=== PATIENT | female | born 1945 | race Caucasian/White ===

== ENCOUNTER → 2017-05-22 | Outpatient (CLI) | payer MEDICARE ==
[~2017-05-22] MED LIST: ALTASE; ASP325T PO; CRESTOR40 MG PO; CYCL10TA9 PO; EZET10TA5 PO; LABE100T2 PO; META800T5 PO; NAPR550T PO; NIA500ERT PO; RMP5C PO; TRM50T PO
--- NOTE | 2017-05-22 17:38 | Diagnostic Imaging Report ---
PROCEDURE: US Carotid Duplex Bilateral. TECHNIQUE: Multiple real-time grayscale images were obtained over the carotid arteries in various projections bilaterally. Additional duplex Doppler and color Doppler images were also obtained. INDICATION: Carotid occlusive disease. COMPARISON: There are no previous studies available for comparison. FINDINGS: There is heavy hard and soft plaque formation involving both carotid bifurcations. The flow velocities do suggest that there is a 60-79% stenosis of the origin of the internal carotid artery on the left. There is no hemodynamically significant stenosis of the right carotid system. Both vertebral arteries were identified, and there was antegrade flow bilaterally. IMPRESSION: 1. There is atherosclerotic disease involving both carotid bifurcations, and there does appear to be 60-79% stenosis of the origin of the internal carotid artery on the left. If further imaging is desired, then CTA of the neck would be recommended. 2. There is no sign of a hemodynamically significant stenosis of the right carotid system. Dictated by: Dictated on workstation # [id number]
== END ==
LOC: RAD 08:57
PROVIDERS: ATTEND Nurse Practitioner
DX: Z12.31 Encounter for screening mammogram for malignant neoplasm of breast (principal); I65.23 Occlusion and stenosis of bilateral carotid arteries
CPT/HCPCS: 77067; 93880

== ENCOUNTER 2018-04-12 15:51 | Emergency (ER) | payer MEDICARE ==
[~2018-04-12] VITALS: Ht 172.7 cm; Wt 81.6 kg
[2018-04-12] MEDS ORDERED: TICA60TA (17:27)
[2018-04-12 17:56] LABS: BASOPHILS % (AUTO) 0 % (0-10); EOSINOPHILS # (AUTO) 0.2 10^3/uL (0.0-0.3); EOSINOPHILS % (AUTO) 4 % (0-10); HEMATOCRIT 43 % (35-52); HEMOGLOBIN 14.2 G/DL (11.5-16.0); LYMPHOCYTES # (AUTO) 1.3 X 10^3 (1.0-4.0); LYMPHOCYTES % (AUTO) 29 % (12-44); MEAN CORPUSCULAR HEMOGLOBIN 32 PG (25-34); MEAN CORPUSCULAR HGB CONC 33 G/DL (32-36); MEAN CORPUSCULAR VOLUME 99 FL (80-99); MEAN PLATELET VOLUME 9.7 FL (7.4-10.4); MONOCYTES # (AUTO) 0.5 X 10^3 (0.0-1.0); MONOCYTES % (AUTO) 12 % (0-12); NEUTROPHILS # (AUTO) 2.4 X 10^3 (1.8-7.8); NEUTROPHILS % (AUTO) 55 % (42-75); PLATELET COUNT 184 10^3/uL (130-400); RED BLOOD COUNT 4.39 10^6/uL (4.35-5.85); RED CELL DISTRIBUTION WIDTH 13.1 % (10.0-14.5); WHITE BLOOD COUNT 4.4 10^3/uL (4.3-11.0)
[2018-04-12 18:13] LABS: ALBUMIN 4.4 GM/DL (3.2-4.5); BILIRUBIN,TOTAL 0.7 MG/DL (0.1-1.0); CALCIUM 10.5 MG/DL (8.5-10.1); CREATININE SERUM 0.98 MG/DL (0.60-1.30); POTASSIUM 4.6 MMOL/L (3.6-5.0)
[2018-04-12 18:28] LABS: BILIRUBIN,URINE NEGATIVE (NEGATIVE); CLARITY,URINE CLEAR; COLOR,URINE YELLOW; GLUCOSE, URINE (UA) NEGATIVE (NEGATIVE); KETONES,URINE NEGATIVE (NEGATIVE); LEUKOCYTE ESTERASE ,URINE NEGATIVE (NEGATIVE); NITRITE,URINE NEGATIVE (NEGATIVE); PH,URINE 7 (5-9); PROTEIN,URINE NEGATIVE (NEGATIVE); UROBILINOGEN,URINE NORMAL (NORMAL)
[2018-04-12 18:33] LABS: PROTHROMBIN TIME PATIENT 13.2 SEC (12.2-14.7)
--- NOTE | 2018-04-12 18:37 | ED GI ---
General Chief Complaint: Rect Problems Stated Complaint: BLEEDING VAGINALLY Nursing Triage Note: AMB TO ROOM WITH PATIENT C/O RECTAL BLEEDING AND HAS BEEN HAVING SOME LOW BACK PAIN. SAW HER DR THIS WEEK FOR THE PAIN WAS TOLD TO TAKE TYLENOL FOR . Sepsis Screen: No Definite Risk Source of Information: Patient Exam Limitations: No Limitations History of Present Illness Date Seen by Provider: Apr 12, 2018 Time Seen by Provider: 18:00 Initial Comments PT ARRIVES VIA POV STATES SHE WAS AT THE LIBRARY, AND AROUND 1600, SHE WENT TO THE BATHROOM AND HAD MODERATE AMOUNT OF BRIGHT RED RECTAL BLEEDING WITH A FEW SMALL CLOTS. NO STOOL. BLEEDING HAS ESSENTIALLY STOPPED NOW. NO BLOOD IN PANTI LINER/PAD, ONLY HAS A SCANT AMOUNT OF BLOOD ON TISSUE WITH WIPING NO RECTAL PAIN NO CONSTIPATION OR DIARRHEA--HAD NORMAL BM THIS AM NO PROBLEMS URINATING NO DIZZINESS NO FEVER NO NAUSEA/VOMITING--APPETITE HAS BEEN NORMAL AND HAS EATEN NORMALLY TODAY HAS BEEN HAVING LOWER BACK PAIN , OCCASIONALLY MORE IN RIGHT FLANK AND RADIATING AROUND TO RIGHT MID AND LOWER ABDOMEN, FOR SEVERAL WEEKS HAS BEEN SEEN AT DR. CHAO'S OFFICE A COUPLE OF TIMES FOR THIS, AND WAS INITIALLY DX WITH UTI AND STARTED ON UNKNOWN ANTIBIOTIC , STATES CULTURES WERE NEGATIVE. SAW DR. CHAO ON Saturday04/10/18 FOR FOLLOW UP AND URINE WAS CLEAR. NO ADDITIONAL TESTS HAVE BEEN DONE, WAS TOLD IT WAS POSSIBLY A PINCHED NERVE. NO ADDITIONAL RX'S PT DENIES HISTORY OF SIMILAR PT HAS HAD A RECTAL POLYP REMOVED MANY YEARS AGO PT IS ON BRILINTA + ASPIRIN FOR CAD/ASVD. PCP: DR. CHAO Allergies and Home Medications Allergies Coded Allergies: No Known Drug Allergies (Unverified , 02/23/10) Home Medications Aspirin 325 Mg Tab, 325 MG PO DAILY, (Reported) Cyclobenzaprine Hcl 10 Mg Tablet, 1 EACH PO Q8HR PRN FOR MUSCLE SPASMS Prescribed by: ENRRIQUE SMITH on 08/09/13 0131 Ezetimibe 10 Mg Tablet, 1 TAB PO DAILY, (Reported) Hydrocortisone/Pramoxine 30 Gm Cream.appl, 30 GM RC QID Prescribed by: ENRRIQUE SMITH on 04/12/181927 Labetalol Hcl 100 Mg Tablet, 1 TAB PO BID, (Reported) Niacin 500 Mg Tablet.sa, 2 TAB PO DAILY, (Reported) Ramipril 5 Mg Capsule, 2 TAB PO DAILY, (Reported) Rosuvastatin Calcium 40 Mg Tablet, 1 TAB PO DAILY, (Reported) Tramadol Hcl 50 Mg Tab, 50 MG PO Q4-6HOURS PRN for P FOR PAIN Prescribed by: ENRRIQUE SMITH on 08/09/13 0131 Patient Home Medication List Home Medication List Reviewed: Yes Review of Systems Constitutional: no symptoms reported; No diaphoresis, No dizziness, No fever, No malaise Respiratory: No Symptoms Reported Cardiovascular: No Symptoms Reported Gastrointestinal: See HPI, Abdominal Pain; Denies Constipated, Denies Diarrhea , Denies Nausea, Denies Poor Appetite; Rectal Bleeding; Denies Vomiting Genitourinary: No Symptoms Reported Musculoskeletal: see HPI, back pain Skin: no symptoms reported Psychiatric/Neurological: No Symptoms Reported Endocrine: No Symptoms Reported Hematologic/Lymphatic: See HPI Past Voamvhl-Tiwqxi-Ntjcmu Hx Patient Social History Alcohol Use: Denies Use Recreational Drug Use: No Smoking Status: Never a Smoker Recent Foreign Travel: No Contact w/Someone Who Travel: No Recent Infectious Disease Expo: No Immunizations Up To Date Tetanus Booster (TDap): Unknown Date of Influenza Vaccine: Jul 07, 2013 Past Medical History Surgeries: Yes (COLONOSCOPIES/RECTAL POLYPECTOMY. LEFT RENAL ARTERY STENT. 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 oz. 81.685162au; BMI Method:Stated General Appearance: WD/WN, no apparent distress HEENT: PERRL/EOMI; No pale conjunctivae (R), No pale conjunctivae (L) Neck: normal inspection Respiratory: normal breath sounds, no respiratory distress, no accessory muscle use Cardiovascular: normal peripheral pulses, regular rate, rhythm, no edema, no JVD, no murmur Gastrointestinal: normal bowel sounds, non tender, soft, no organomegaly, no pulsatile mass Rectal: hemorrhoids (BLEEDING RECTAL HEMORRHOID, WITH SMALL CLOT AT SITE--NO ACTIVE BLEEDING AT THIS TIME. NON--TENDER) Extremities: normal inspection, no pedal edema, no calf tenderness, normal capillary refill Back: normal inspection, no CVA tenderness Neurologic/Psychiatric: survey superintendent II-XII nml as tested, no motor/sensory deficits, alert, normal mood/affect, oriented x 3 Skin: normal color, warm/dry; No ecchymosis, No rash Progress/Results/Core Measures Results/Orders Lab Results Laboratory Tests Test 04/12/18 17:45 04/12/18 18:23 Range/Units White Blood Count 4.4 4.3-11.0 10^3/uL Red Blood Count 4.39 4.35-5.85 10^6/uL Hemoglobin 14.2 11.5-16.0 G/DL Hematocrit 43 35-52 % Mean Corpuscular Volume 99 80-99 FL Mean Corpuscular Hemoglobin 32 25-34 PG Mean Corpuscular Hemoglobin Concent 33 32-36 G/DL Red Cell Distribution Width 13.1 10.0-14.5 % Platelet Count 184 130-400 10^3/uL Mean Platelet Volume 9.7 7.4-10.4 FL Neutrophils (%) (Auto) 55 42-75 % Lymphocytes (%) (Auto) 29 12-44 % Monocytes (%) (Auto) 12 0-12 % Eosinophils (%) (Auto) 4 0-10 % Basophils (%) (Auto) 0 0-10 % Neutrophils # (Auto) 2.4 1.8-7.8 X 10^3 Lymphocytes # (Auto) 1.3 1.0-4.0 X 10^3 Monocytes # (Auto) 0.5 0.0-1.0 X 10^3 Eosinophils # (Auto) 0.2 0.0-0.3 10^3/uL Basophils # (Auto) 0.0 0.0-0.1 10^3/uL Prothrombin Time 13.2 12.2-14.7 SEC INR Comment 1.0 0.8-1.4 Activated Partial Thromboplast Time 31 24-35 SEC Sodium Level 140 135-145 MMOL/L Potassium Level 4.6 3.6-5.0 MMOL/L Chloride Level 108 H 98-107 MMOL/L Carbon Dioxide Level 26 21-32 MMOL/L Anion Gap 6 5-14 MMOL/L Blood Urea Nitrogen 24 H 7-18 MG/DL Creatinine 0.98 0.60-1.30 MG/DL Estimat Glomerular Filtration Rate 55 BUN/Creatinine Ratio 24 Glucose Level 91 70-105 MG/DL Calcium Level 10.5 H 8.5-10.1 MG/DL Magnesium Level 2.2 1.8-2.4 MG/DL Total Bilirubin 0.7 0.1-1.0 MG/DL Aspartate Amino Transf (AST/SGOT) 22 5-34 U/L Alanine Aminotransferase (ALT/SGPT) 19 0-55 U/L Alkaline Phosphatase 44 40-136 U/L Total Protein 7.0 6.4-8.2 GM/DL Albumin 4.4 3.2-4.5 GM/DL Urine Color YELLOW Urine Clarity CLEAR Urine pH 7 5-9 Urine Specific [place] 1.005 L 1.016-1.022 Urine Protein NEGATIVE NEGATIVE Urine Glucose (UA) NEGATIVE NEGATIVE Urine Ketones NEGATIVE NEGATIVE Urine Nitrite NEGATIVE NEGATIVE Urine Bilirubin NEGATIVE NEGATIVE Urine Urobilinogen NORMAL NORMAL MG/DL Urine Leukocyte Esterase NEGATIVE NEGATIVE Urine RBC (Auto) NEGATIVE NEGATIVE Urine RBC RARE /HPF Urine WBC 0-2 /HPF Urine Squamous Epithelial Cells 2-5 /HPF Urine Renal Epithelial Cells NONE /HPF Urine Crystals NONE /LPF Urine Bacteria NEGATIVE /HPF Urine Casts NONE /LPF Urine Mucus NEGATIVE /LPF Urine Culture Indicated NO My Orders Orders - ENRRIQUE SMITH DO Ct Abd/Pelvis Wo(Kidney Stone) (04/12/18 18:20) Magnesium (04/12/18 18:20) Protime With Inr (04/12/18 18:20) Partial Thromboplastin Time (04/12/18 18:20) Ua Culture If Indicated (04/12/18 18:20) Acute Abd Series (04/12/18 18:20) Vital Signs/I&O Blood Pressure Mean: 130 Progress Progress Note : Progress Note NO ACTIVE RECTAL BLEEDING DURING ER STAY Diagnostic Imaging Comments ACUTE ABDOMEN XRAYS--NO ACUTE PROCESS CT ABDOMEN/PELVIS--NO ACUTE PROCESS, CHRONIC RIGHT RENAL ATROPHY, 5 MM NON- OBSTRUCTING STONE IN INFERIOR POLE OF RIGHT KIDNEY, LOBULAR HYPERTROPHY OF LEFT KIDNEY--LIKELY NORMAL VARIANT, 2 CM INFRARENAL ABDOMINAL AORTIC ANEURYSM, DEGENERATIVE CHANGES/SCOLIOSIS OF LUMBAR SPINE PER RADIOLOGIST REPORTS @ 1903 Reviewed: Reviewed by Me Departure Impression Primary Impression: Rectal bleeding Additional Impression: Bleeding hemorrhoid Disposition: HOME, SELF-CARE Condition: Stable Departure-Patient Inst. Referrals: WEI CHAO MD (PCP/Family) Primary Care Physician Patient Instructions: Bloody Stools, Adult (DC), Hemorrhoids (DC) Add. Discharge Instructions: AVOID CONSTIPATION OR STRAINING WITH BOWEL MOVEMENTS CONTINUE YOUR MEDICATIONS PRESCRIBED FOLLOW UP WITH DR. CHAO IN 2-3 DAYS FOR FURTHER CARE AND ARRANGING COLONOSCOPY. RETURN TO ER IF WORSE All discharge instructions reviewed with patient and/or family. Voiced understanding. Scripts Hydrocortisone/Pramoxine (Pramcort 1% Cream) 30 Gm Cream.appl 30 GM RC QID, #1 APPLIC Prov: ENRRIQUE SMITH DO 04/12/18 ENRRIQUE SMITH DO Apr 12, 2018 18:37
[2018-04-12 18:42] LABS: BACTERIA,URINE NEGATIVE /HPF; RBC,URINE RARE /HPF; WBC,URINE 0-2 /HPF
--- NOTE | 2018-04-12 18:47 | Diagnostic Imaging Report ---
INDICATION: Abdominal pain, bloody stools, flank pain. COMPARISON: 06/16/2015. EXAMINATION: Acute abdominal series. FINDINGS: Stable cardiac enlargement without overt pulmonary edema. There is minimal effusion/atelectasis in the left base. Pacemaker is stable. There is no pneumothorax. Mild to moderate constipation is seen throughout the colon. There is no obstruction or ileus. There is no free air. Advanced degenerative change is seen involving the thoracolumbar spine. Lumbar scoliosis is present. IMPRESSION: 1. Small effusion in left lung base with dependent atelectasis. 2. Constipation without obstruction or ileus. Dictated by: Dictated on workstation # [id number]
--- OUTSIDE RECORDS SUMMARY | 2018-04-12 18:49 | XMS REPORT | Continuity of Care Document ---
Author Author [facility] Organization [facility] Address Unknown Phone Unavailable Allergies Active Description Code Type Severity Reaction Onset Reported/Identified Relationship to Patient Clinical Status Yes No Known Drug Allergies [id number] Drug Allergy Unknown N/A 02/23/2010 Medications There is no data. Problems Date Dx Coded Attending Type Code Diagnosis Diagnosed By 02/23/2010 Ot 721.0 02/23/2010 Ot 722.4 02/23/2010 Ot 723.1 06/16/2010 Ot 276.50 06/16/2010 Ot 401.9 06/16/2010 Ot 787.02 06/16/2010 Ot 211.3 06/16/2010 Ot 564.1 06/16/2010 Ot V67.09 08/09/2013 ENRRIQUE SMITH DO Ot 719.41 JOINT PAIN-SHLDER 08/09/2013 ENRRIQUE SMITH DO Ot 723.1 CERVICALGIA 09/30/2014 WEI CHAO MD Ot V76.12 06/16/2015 LUIS RODRIGUEZ ENRRIQUE K Ot 401.9 HYPERTENSION NOS 06/16/2015 ENRRIQUE SMITH DO Ot 426.13 AV BLOCK-2ND DEGREE NEC 06/16/2015 ENRRQIUE SMITH DO Ot 427.89 CARDIAC DYSRHYTHMIAS NEC 06/16/2015 ENRRIQUE SMITH DO Ot V58.69 OTH MED,LT,CURRENT USE 07/13/2015 Ot V76.12 07/13/2015 Ot V76.12 07/13/2015 Ot V76.12 07/13/2015 ZHANNA HERNANDEZ, WEI Wang Ot V76.12 07/27/2015 RAMANDEEP HERNANDEZ, NICO Guerra Ot Z48.812 07/27/2015 RAMANDEEP HERNANDEZ, NICO Guerra Ot Z95.5 08/22/2015 RAMANDEEP HERNANDEZ, NICO Guerra Ot Z48.812 08/22/2015 RAMANDEEP HERNANDEZ, LUIS ENRIQUE Ot Z95.5 08/25/2015 RAMANDEEP HERNANDEZ, LUIS ENRIQUE Ot Z48.812 08/25/2015 RAMANDEEP HERNANDEZ, LUIS ENRIQUE Ot Z95.5 10/11/2015 RAMANDEEP HERNANDEZ, LUIS ENRIQUE Ot Z48.812 ENCNTR FOR SURGICAL AFTCR FOLLOWING SURG 10/11/2015 RAMANDEEP HERNANDEZ, LUIS ENRIQUE Ot Z95.5 PRESENCE OF CORONARY ANGIOPLASTY IMPLANT 10/12/2015 RAMANDEEP HERNANDEZ, LUIS ENRIQUE Ot Z48.812 10/12/2015 RAMANDEEP HERNANDEZ, LUIS ENRIQUE Ot Z95.5 10/12/2015 RAMANDEEP HERNANDEZ, LUIS ENRIQUE Ot Z48.812 10/12/2015 RAMANDEEP HERNANDEZ, LUIS ENRIQUE Ot Z95.5 10/14/2015 RAMANDEEP HERNANDEZ, LUIS ENRIQUE Ot Z48.812 10/14/2015 RAMANDEEP HERNANDEZ, LUIS ENRIQUE Ot Z95.5 11/09/2015 RAMANDEEP HERNANDEZ, LUIS ENRIQUE Ot Z48.812 ENCNTR FOR SURGICAL AFTCR FOLLOWING SURG 11/09/2015 RAMANDEEP HERNANDEZ, LUIS ENRIQUE Ot Z95.5 PRESENCE OF CORONARY ANGIOPLASTY IMPLANT 05/10/2016 GAVI LOUISE USER EXPERIENCE DEVELOPER Ot Z12.31 ENCNTR SCREEN MAMMOGRAM FOR MALIGNANT NE 06/01/2016 GAVI LOUISE USER EXPERIENCE DEVELOPER Ot Z12.31 ENCNTR SCREEN MAMMOGRAM FOR MALIGNANT NE 05/15/2017 ZHANNA HERNANDEZ, WEI Wang Ot I65.23 OCCLUSION AND STENOSIS OF BILATERAL MCCARTHY 05/15/2017 GAVI LOUISE USER EXPERIENCE DEVELOPER Ot Z12.31 ENCNTR SCREEN MAMMOGRAM FOR MALIGNANT NE 05/15/2017 GAVI OLUISE USER EXPERIENCE DEVELOPER Ot Z12.31 ENCNTR SCREEN MAMMOGRAM FOR MALIGNANT NE 05/20/2017 GAVI LOUISE USER EXPERIENCE DEVELOPER Ot I65.23 OCCLUSION AND STENOSIS OF BILATERAL MCCARTHY 05/20/2017 GAVI LOUISE USER EXPERIENCE DEVELOPER Ot Z12.31 ENCNTR SCREEN MAMMOGRAM FOR MALIGNANT NE 05/20/2017 Ot V76.12 OTH SCREEN MAMMO-MALIGN NEOPLASM OF JAM 05/20/2017 ZHANNA HERNANDEZ, WEI Wang Ot V76.12 OTH SCREEN MAMMO-MALIGN NEOPLASM OF JAM 05/20/2017 GAVI LOUISE APRN Ot Z12.31 ENCNTR SCREEN MAMMOGRAM FOR MALIGNANT NE 05/20/2017 WEI CHAO MD Ot I65.23 OCCLUSION AND STENOSIS OF BILATERAL MCCARTHY 05/20/2017 GAVI LOUISE APRN Ot I65.23 OCCLUSION AND STENOSIS OF BILATERAL MCCARTHY 05/20/2017 GAVI LOUISE APRN Ot Z12.31 ENCNTR SCREEN MAMMOGRAM FOR MALIGNANT NE 05/21/2017 WEI CHAO MD Ot I65.23 OCCLUSION AND STENOSIS OF BILATERAL MCCARTHY 05/21/2017 WEI CHAO MD Ot I65.23 OCCLUSION AND STENOSIS OF BILATERAL MCCARTHY 05/22/2017 Ot V76.12 OTH SCREEN MAMMO-MALIGN NEOPLASM OF JAM 05/22/2017 WEI CHAO MD Ot V76.12 OTH SCREEN MAMMO-MALIGN NEOPLASM OF JAM 05/22/2017 GAVI LOUISE APRN Ot Z12.31 ENCNTR SCREEN MAMMOGRAM FOR MALIGNANT NE 05/22/2017 WEI CHAO MD Ot I65.23 OCCLUSION AND STENOSIS OF BILATERAL MCCARTHY 05/22/2017 GAVI LOUISE APRN Ot I65.23 OCCLUSION AND STENOSIS OF BILATERAL MCCARTHY 05/22/2017 GAVI LOUISE APRN Ot Z12.31 ENCNTR SCREEN MAMMOGRAM FOR MALIGNANT NE 05/22/2017 GAVI LOUISE APRN Ot I65.23 OCCLUSION AND STENOSIS OF BILATERAL MCCARTHY 05/22/2017 GAVI LOUISE APRN Ot Z12.31 ENCNTR SCREEN MAMMOGRAM FOR MALIGNANT NE 06/14/2017 GAVI LOUISE APRN Ot I65.23 OCCLUSION AND STENOSIS OF BILATERAL MCCARTHY 06/14/2017 GAVI LOUISE APRN Ot Z12.31 ENCNTR SCREEN MAMMOGRAM FOR MALIGNANT NE 06/19/2017 GAVI LOUISE APRN Ot I65.23 OCCLUSION AND STENOSIS OF BILATERAL MCCARTHY 06/19/2017 GAVI LOUISE APRN Ot Z12.31 ENCNTR SCREEN MAMMOGRAM FOR MALIGNANT NE Procedures There is no data. Results There is no data. Encounters ACCT No. Visit Date/Time Discharge Status Pt. Type Provider Facility Loc./Unit Complaint [id number] 05/22/2017 08:57:00 05/22/2017 23:59:59 [facility] Outpatient GAVI LOUISE APRN [facility] RAD SCREENING [id number] 05/15/2017 14:19:00 05/15/2017 23:59:59 CLS Preadmit WEI CHAO MD [facility] RAD CAROTID OCCLUSIVE DISEASE [id number] 05/10/2016 13:02:00 05/10/2016 23:59:59 CLS Outpatient GAVI LOUISE USER EXPERIENCE DEVELOPER [facility] RAD SCREENING [id number] 11/09/2015 12:08:00 11/09/2015 13:19:00 DIS Outpatient NICO SABILLON MD [facility] CR STENT [id number] 10/07/2015 13:01:00 10/07/2015 23:59:59 CLS Outpatient NICO SABILLON MD [facility] CR STENT [id number] 06/16/2015 01:27:00 06/16/2015 04:56:00 DIS Emergency LUIS DOENRRIQUE [facility] ER SLOW PULSE [id number] 09/09/2014 12:56:00 09/09/2014 23:59:59 CLS Outpatient WEI CHAO MD [facility] RAD ROUTINE [id number] 08/08/2013 21:23:00 08/09/2013 01:40:00 DIS Emergency LUIS DOENRRIQUE [facility] ER NECK PAIN [id number] 10/10/2012 13:05:00 Document Registration [id number] 08/13/2011 09:23:00 Document Registration [id number] 06/16/2010 07:22:00 Document Registration [id number] 06/16/2010 03:09:00 Document Registration [id number] 05/08/2010 10:17:00 Document Registration [id number] 02/23/2010 10:48:00 Document Registration [id number] 06/16/2015 08:15:28 ACT Document Registration
--- NOTE | 2018-04-12 18:56 | Diagnostic Imaging Report ---
PROCEDURE: CT urinary tract, rule out kidney stone. TECHNIQUE: Multiple contiguous axial images were obtained through the abdomen and pelvis without the use of intravenous contrast. INDICATION: Bloody stools, flank pain. COMPARISON: None. FINDINGS: The lung bases are clear. The gallbladder, liver, spleen, pancreas and adrenal glands are unremarkable. There is chronic right renal atrophy. There is a nonobstructive stone in the inferior pole of the right kidney, measuring 5 mm. The left kidney demonstrates some masslike lobular features in the midpole. This is likely a normal variant. This area measures approximately 2 cm. Postcontrast imaging on a nonemergent basis is recommended. Otherwise, left kidney is unremarkable. Distal ureters and urinary bladder are normal. There is no inflammation. The uterus is intact. Course and caliber of the large and small bowel are normal. The appendix is normal. There is no bowel obstruction. No lymphadenopathy is seen. There is a 2 cm infrarenal abdominal aortic aneurysm. Advanced degenerative changes with scoliosis are seen in the lumbar spine. No compression fracture is seen. IMPRESSION: 1. Chronic right renal atrophy. Compensatory hypertrophy of the left kidney with lobular features probably a normal variant. Nonemergent postcontrast imaging is recommended to exclude underlying mass. No hydronephrosis is seen. 2. Nonobstructive stone in the inferior pole of the right kidney. 3. Lumbar scoliosis with degenerative changes. 4. There is a 2 cm infrarenal abdominal aortic aneurysm. Dictated by: Dictated on workstation # [id number]
[2018-04-12] MEDS ORDERED: HYDR30CR RC (19:28)
[2018-04-12 19:34] VITALS: BP 194/99
== END 2018-04-12 19:34 | disposition home or self-care (01) ==
LOC: EDUNIT# 15:51 → ER 15:52
DX: K62.5 Hemorrhage of anus and rectum (principal); K64.9 Unspecified hemorrhoids; I25.10 Atherosclerotic heart disease of native coronary artery without angina pectoris; I25.2 Old myocardial infarction; E78.00 Pure hypercholesterolemia, unspecified; I10 Essential (primary) hypertension; I73.9 Peripheral vascular disease, unspecified; Z79.82 Long term (current) use of aspirin; Z95.5 Presence of coronary angioplasty implant and graft; Z90.89 Acquired absence of other organs
CPT/HCPCS: 36415; 74022; 74176; 80053; 81000; 83735; 85025; 85610; 85730

== ENCOUNTER 2022-06-21 12:49 | Outpatient (RCR) | payer MEDICARE ==
[~2022-06-21 12:49] MED LIST changes: +HYDR30CR RC; +TICA60TA
== END 2022-06-22 | disposition home or self-care (01) ==
PROVIDERS: ATTEND Podiatrist Foot & Ankle Surgery
DX: M25.552 Pain in left hip (principal); M25.551 Pain in right hip

== ENCOUNTER → 2022-07-23 | Outpatient (RCR) | payer MEDICARE | END | disposition home or self-care (01) | PROVIDERS: ATTEND Podiatrist Foot & Ankle Surgery | DX: M25.552 Pain in left hip (principal); M25.551 Pain in right hip; M54.50 Low back pain, unspecified; I11.9 Hypertensive heart disease without heart failure ==

== ENCOUNTER → 2022-08-22 | Outpatient (RCR) | payer MEDICARE | END | disposition home or self-care (01) | PROVIDERS: ATTEND Podiatrist Foot & Ankle Surgery | DX: M25.552 Pain in left hip (principal); M25.551 Pain in right hip; M54.50 Low back pain, unspecified; I11.9 Hypertensive heart disease without heart failure ==

== ENCOUNTER 2022-08-24 12:59 | Outpatient (RCR) | payer MEDICARE | END 2022-08-24 13:45 | disposition home or self-care (01) | PROVIDERS: ATTEND Podiatrist Foot & Ankle Surgery | DX: M25.552 Pain in left hip (principal); M54.50 Low back pain, unspecified; I11.9 Hypertensive heart disease without heart failure ==

== ENCOUNTER 2023-03-25 12:20 | Observation (INO) | payer MEDICARE ==
[~2023-03-25] VITALS: Ht 172 cm; Wt 81.4 kg
[2023-03-25] VITALS (12 sets, daily range): BP systolic 97–187; BP diastolic 76–138
--- NOTE | 2023-03-25 12:42 | ED Respiratory ---
General Chief Complaint: COVID19 Suspect/Confirmed Stated Complaint: COVID+ | COUGH | CONGESTION Nursing Triage Note: TESTED POSITIVE FOR COVID ON THE . STATES TODAY SHE CAN'T CATCH HER BREATH AND FEELS TIRED. Source: patient Exam Limitations: no limitations History of Present Illness Date Seen by Provider: Mar 25, 2023 Time Seen by Provider: 12:42 Initial Comments Patient is an 78-year-old female with a history of COVID diagnosed on 14 March status post Paxlovid. Presents to the emergency department today with a chief complaint of shortness of breath. She has a history of hypertension/pacemaker placement. She is not on daily oxygen. She states that she took her pulse ox this morning when she was feeling short of breath and fatigued and her oxygen was 96 and her heart rate was 142. She does not believe she has a history of A- fib but she is on Eliquis twice daily. She states she has not missed or skipped any doses. 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 She denies chest pain, productive cough today. No problems with appetite recently. No GI or symptoms. She feels very weak. Local physician is Dr. Chao. She denies palpitations. Of note her heart rate is anywhere from 130-170 on telemetry. Timing/Duration: this morning Severity: moderate Associated Symptoms: shortness of breath Allergies and Home Medications Allergies Coded Allergies: No Known Drug Allergies (Unverified , 02/23/10) Patient Home Medication List Home Medication List Reviewed: Yes Alirocumab (Praluent Pen) 150 Mg/Ml Pen.injctr, 150 MG SQ UD Prescribed by: CATIA DURAN on 03/26/231514 Last Action: Reviewed Apixaban (Eliquis) 5 Mg Tablet, 5 MG PO BID Prescribed by: CATIA DURAN on 03/26/231514 Last Action: Reviewed Ascorbic Acid (Vitamin C) 500 Mg Capsule.er, 500 MG PO DAILY Prescribed by: CATIA DURAN on 03/26/231514 Last Action: Reviewed Aspirin (Aspirin) 81 Mg Tab.chew, 81 MG PO DAILY Prescribed by: CATIA DURAN on 03/26/231514 Last Action: Reviewed Carvedilol (Carvedilol) 12.5 Mg Tablet, 12.5 MG PO BID Prescribed by: CATIA DURAN on 03/26/231514 Last Action: Reviewed Diltiazem HCl (Diltiazem 24Hr ER) 300 Mg Cap.er.24h, 300 MG PO DAILY Prescribed by: PHOENIX NEW on 03/26/231525 Ezetimibe (Zetia) 10 Mg Tablet, 1 TAB PO DAILY, (Reported) Entered as Reported by: BRITTANY ENGEL on 02/23/101103 Last Action: Reviewed Multivitamin (Multivitamin) 1 Each Tablet, 1 EACH PO DAILY Prescribed by: CATIA DURAN on 03/26/231514 Last Action: Reviewed [place]-3/Dha/Epa/Fish Oil (Fish Oil 1,000 mg Softgel) 1,000 Mg (120 Mg-180 Mg) Capsule, 1,000 MG PO DAILY Prescribed by: CATIA DURAN on 03/26/231514 Last Action: Reviewed Rosuvastatin Calcium (Crestor) 40 Mg Tablet, 1 TAB PO DAILY, (Reported) Entered as Reported by: BRITTANY ENGEL on 02/23/101103 Last Action: Reviewed [Marino Ex] Prescribed by: CATIA DURAN on 03/26/231514 Last Action: Reviewed Discontinued Medications Aspirin (Aspirin 325 Mg Tab) 325 Mg Tab, 325 MG PO DAILY, (Reported) Discontinued Reason: No Longer Taking Entered as Reported by: BRANDY VILLANUEVA on 08/08/130 Last Action: Discontinued Cyclobenzaprine Hcl (Cyclobenzaprine Hcl) 10 Mg Tablet, 1 EACH PO Q8HR PRN Discontinued Reason: No Longer Taking Prescribed by: ENRRIQUE SMITH on 08/09/13 0131 Last Action: Discontinued Hydrocortisone/Pramoxine (Pramcort 1% Cream) 30 Gm Cream.appl, 30 GM RC QID Discontinued Reason: No Longer Taking Prescribed by: ENRRIQUE SMITH on 04/12/18 1928 Last Action: Discontinued Labetalol Hcl (Labetalol Hcl) 100 Mg Tablet, 1 TAB PO BID, (Reported) Discontinued Reason: No Longer Taking Entered as Reported by: BRITTANY ENGEL on 02/23/101103 Last Action: Discontinued Niacin (Niaspan) 500 Mg Tablet.sa, 2 TAB PO DAILY, (Reported) Discontinued Reason: No Longer Taking Entered as Reported by: BRITTANY ENGEL on 02/23/101103 Last Action: Discontinued Ramipril (Altace) 5 Mg Capsule, 2 TAB PO DAILY, (Reported) Discontinued Reason: No Longer Taking Entered as Reported by: KATHRYN AYALA on 06/16/10 0316 Last Action: Discontinued Ticagrelor (Brilinta) 60 Mg Tablet, (Reported) Discontinued Reason: No Longer Taking Entered as Reported by: SORAYA STORM on 04/12/18 1727 Last Action: Discontinued Tramadol Hcl (Ultram) 50 Mg Tab, 50 MG PO Q4-6HOURS PRN for P Discontinued Reason: No Longer Taking Prescribed by: ENRRIQUE SMITH on 08/09/13 0131 Last Action: Discontinued Review of Systems Review of Systems Constitutional: see HPI EENTM: no symptoms reported Respiratory: short of breath Cardiovascular: no symptoms reported Gastrointestinal: no symptoms reported Genitourinary: no symptoms reported Musculoskeletal: no symptoms reported Skin: no symptoms reported All Other Systems Reviewed Negative Unless Noted: Yes Past Jwltgdl-Qfxbim-Wzzdhy Hx Immunizations Up To Date Tetanus Booster (TDap): Unknown Past Medical History Surgeries: Yes Cardiac, Coronary Stent, Rectal, Tonsillectomy, Vascular Surgery Respiratory: No Cardiac: Yes Coronary Artery Disease, Heart Attack, High Cholesterol, Hypertension, P eripheral Vascular Neurological: No Reproductive Disorders: No [employer] History: Menopausal Sexually Transmitted Disease: No HIV/AIDS: No Genitourinary: Yes (LEFT RENAL ARTERY STENT; 1 NON-FUNCTIONING KIDNEY) Bladder Infection Gastrointestinal: Yes (RECTAL POLYP) Polyps Musculoskeletal: Yes Arthritis, Chronic Back Pain Endocrine: No HEENT: Yes Cataract Loss of Vision: Bilateral Hearing Impairment: Denies Cancer: No Psychosocial: No Integumentary: No Blood Disorders: No Physical Exam Vital Signs - First Documented 03/25/23 12:25 Temp 37.2 Pulse 133 Resp 16 B/P (MAP) 115/97 (103) Pulse Ox 94 O2 Delivery Room Air Capillary Refill : Less Than 3 Seconds Height: 5'8.00" Weight: 180lbs. oz. 81.896022ul; 27.00 BMI Method:Stated General Appearance: WD/WN, mild distress HEENT: PERRL/EOMI, pharynx normal Neck: supple Respiratory: no accessory muscle use, decreased breath sounds (at bases bilaterally) Cardiovascular: tachycardia (155 bpm), irregularly irregular Gastrointestinal: normal bowel sounds, non tender, soft Extremities: normal range of motion, no pedal edema Neurologic/Psychiatric: alert, normal mood/affect, oriented x 3 Skin: normal color, warm/dry Progress/Results/Core Measures Suspected Sepsis SIRS Temperature: Pulse: 133 Respiratory Rate: 16 Laboratory Tests 03/25/23 12:42: White Blood Count 10.7 Blood Pressure 115 /97 Mean: 103 Laboratory Tests 03/25/23 12:42: Creatinine 1.01, INR Comment 1.3, Platelet Count 250, Total Bilirubin 0.8 Results/Orders Lab Results Laboratory Tests Test 03/25/23 12:42 Range/Units White Blood Count 10.7 4.3-11.0 10^3/uL Red Blood Count 4.42 3.80-5.11 10^6/uL Hemoglobin 14.5 11.5-16.0 g/dL Hematocrit 44 35-52 % Mean Corpuscular Volume 99 80-99 fL Mean Corpuscular Hemoglobin 33 25-34 pg Mean Corpuscular Hemoglobin Concent 33 32-36 g/dL Red Cell Distribution Width 13.5 10.0-14.5 % Platelet Count 250 130-400 10^3/uL Mean Platelet Volume 9.4 9.0-12.2 fL Immature Granulocyte % (Auto) 1 % Neutrophils (%) (Auto) 74 42-75 % Lymphocytes (%) (Auto) 15 12-44 % Monocytes (%) (Auto) 9 0-12 % Eosinophils (%) (Auto) 1 0-10 % Basophils (%) (Auto) 0 0-10 % Neutrophils # (Auto) 7.9 H 1.8-7.8 10^3/uL Lymphocytes # (Auto) 1.6 1.0-4.0 10^3/uL Monocytes # (Auto) 1.0 0.0-1.0 10^3/uL Eosinophils # (Auto) 0.1 0.0-0.3 10^3/uL Basophils # (Auto) 0.0 0.0-0.1 10^3/uL Immature Granulocyte # (Auto) 0.1 0.0-0.1 10^3/uL Prothrombin Time 15.9 H 12.2-14.7 SEC INR Comment 1.3 0.8-1.4 Activated Partial Thromboplast Time 34 24-35 SEC Sodium Level 141 135-145 MMOL/L Potassium Level 4.3 3.6-5.0 MMOL/L Chloride Level 109 H 98-107 MMOL/L Carbon Dioxide Level 22 21-32 MMOL/L Anion Gap 10 5-14 MMOL/L Blood Urea Nitrogen 23 H 7-18 MG/DL Creatinine 1.01 0.60-1.30 MG/DL Estimat Glomerular Filtration Rate 56 BUN/Creatinine Ratio 23 Glucose Level 111 H 70-105 MG/DL Calcium Level 9.4 8.5-10.1 MG/DL Corrected Calcium 9.7 8.5-10.1 MG/DL Magnesium Level 2.2 1.6-2.4 MG/DL Total Bilirubin 0.8 0.1-1.0 MG/DL Aspartate Amino Transf (AST/SGOT) 50 H 5-34 U/L Alanine Aminotransferase (ALT/SGPT) 91 H 0-55 U/L Alkaline Phosphatase 38 L 40-136 U/L Troponin I < 0.028 <0.028 NG/ML B-Type Natriuretic Peptide 1206.1 H <100.0 PG/ML Total Protein 6.2 L 6.4-8.2 GM/DL Albumin 3.6 3.2-4.5 GM/DL My Orders Orders - SERENITY TAYLOR MD Ekg Tracing (03/25/23 12:45) Cbc With Automated Diff (03/25/23 12:53) Magnesium (03/25/23 12:53) Chest 1 View, Ap/Pa Only (03/25/23 12:53) Comprehensive Metabolic Panel (03/25/23 12:53) Protime With Inr (03/25/23 12:53) Partial Thromboplastin Time (03/25/23 12:53) O2 (03/25/23 12:53) Monitor-Rhythm Ecg Trace Only (03/25/23 12:53) Ed Iv/Invasive Line Start (03/25/23 12:53) Troponin I [place] (03/25/23 12:53) Ns Iv 500 Ml (Sodium Chloride 0.9%) (03/25/23 13:00) Ns Iv 500 Ml (Sodium Chloride 0.9%) (03/25/23 13:01) Diltiazem Injection (Cardizem Injection) (03/25/23 13:30) Bnp [place] (03/25/23 13:29) Diltiazem Cd 24 Hr Capsule (Cardizem Cd (03/25/23 14:45) Furosemide Injection (Lasix Injection) (03/25/23 14:45) Medications Given in ED Vital Signs/I&O 03/25/23 03/25/23 03/25/23 03/25/23 12:25 13:40 15:25 15:27 Temp 37.2 36.4 Pulse 133 128 96 Resp 16 18 B/P (MAP) 115/97 (103) 159/107 165/129 Pulse Ox 94 97 96 O2 Delivery Room Air Room Air Room Air 03/25/23 03/25/23 03/25/23 15:30 15:33 15:35 Pulse 98 125 97 Resp 13 B/P (MAP) 132/95 (107) 132/95 (107) Pulse Ox 96 O2 Delivery Room Air Room Air Capillary Refill : Less Than 3 Seconds Blood Pressure Mean: 103 Progress Note : Time: 14:37 Progress Note Patient seen and evaluated by me. Evaluation today includes physical exam, CBC, Chem-12, coag profile, troponin, BNP, EKG and chest x-ray. Pertinent physical exam findings, well-developed well-nourished female in no acute distress. Heart is irregularly irregular, tachycardic in the 140s. She is pink warm and dry. Diminished breath sounds throughout with occasional crackles. Abdomen is soft. No lower extremity edema. Normal mentation. Differential diagnosis based on history and physical exam, A-fib with RVR, congestive heart failure, pneumonia. Patient's labs, EKG and chest x-ray independently reviewed and interpreted by me. Her CBC is normal. Chemistry is normal with a BUN and creatinine of 23 and 1.01. Liver functions are slightly elevated with an AST of 60, ALT of 91, alk phos of 38. PT is 15.9, slightly elevated. INR 1.3, PTT of 34. Her troponin is undetectable. Her BNP is elevated at 1206. EKG shows A-fib with rapid ventricular response. Chest x-ray shows increased pulmonary vascular congestion consistent with CHF. Patient is treated in the emergency department with 20 mg of Cardizem IV. She did have resolution of her rapid ventricular response, standing in A-fib in the 80s. Case was discussed with Dr. Wells, cardiology on-call who recommended Cardizem p.o. Patient is anticoagulated already. Will admit the patient to the hospitalist service. Case was discussed with Dr. Toshia cooper who accepts admission. No indications at this time of NSTEMI or acute coronary syndrome. No concerning findings for pneumonia at this time. ECG Initial ECG Impression Date: Mar 25, 2023 Initial ECG Impression Time: 12:50 Initial ECG Rate: 113 Initial ECG Rhythm: A Fib/Flutter Initial ECG Impression: Atrial Fibrillation w/RVR Diagnostic Imaging Diagonstic Imaging: Xray Plain Films/CT/US/NM/MRI: chest Comments [facility] [place] NAME: EVAN QUINTERO [facility] REC#: [id number] PT STATUS: REG ER : 1945 PHYSICIAN: SERENITY TAYLOR MD ADMIT DATE: 03/25/23/ER Draft Date of Exam:03/25/23 CHEST 1 VIEW, AP/PA ONLY Indication: Chest pain Frontal chest obtained at 1:01 p.m. and compared to 06/16/2015. There is cardiomegaly and central vascular congestion with new bibasilar infiltrates. There is no pneumothorax or significant sized pleural effusion. There is a new dual-lumen pacemaker compared to the prior study. Impression: cardiomegaly. Worsening central vascular congestion with new bibasilar infiltrates. Followup is recommended. Dictated on workstation # [id number] Dict: 03/25/23 1315 Trans: 03/25/23 1317 CVB [id number] Interpreted by: CALLIE NINA MD Electronically signed by: Departure Communication (Admissions) Time/Spoke to Admitting Phy: 15:[address] New (hospitalist) - step down, Obs Time/Spoke to Consulting Phy: 14:[address] wells (cardiology); Cardizem CD 240mg now and daily; Lasix 40mg now and daily Impression Primary Impression: Atrial fibrillation with rapid ventricular response Additional Impression: Congestive heart failure Qualified Codes: I50.9 - Heart failure, unspecified Disposition: ADMITTED INPATIENT Condition: Critical Admissions Decision to Admit Reason: Admit from ER (General) Decision to Admit/Date: Mar 25, 2023 Time/Decision to Admit Time: 13:25 Departure-Patient Inst. Referrals: WEI CHAO MD (PCP/Family) Primary Care Physician Scripts Diltiazem HCl (Diltiazem 24Hr ER) 300 Mg Cap.er.24h 300 MG PO DAILY for 30 Days, #30 CAP Prov: PHOENIX NEW MD 03/26/23 [Marino Ex] No Conflict Check Prov: PHOENIX NEW MD 03/26/23 [place]-3/Dha/Epa/Fish Oil (Fish Oil 1,000 mg Softgel) 1,000 Mg (120 Mg-180 Mg) Capsule 1000 MG PO DAILY for 30 Days, CAP Prov: PHOENIX NEW MD 03/26/23 Multivitamin (Multivitamin) 1 Each Tablet 1 EACH PO DAILY for 30 Days, TAB Prov: PHOENIX NEW MD 03/26/23 Aspirin (Aspirin) 81 Mg Tab.chew 81 MG PO DAILY for 30 Days, TAB Prov: PHOENIX NEW MD 03/26/23 Ascorbic Acid (Vitamin C) 500 Mg Capsule.er 500 MG PO DAILY for 30 Days, CAP Prov: HPOENIX NEW MD 03/26/23 Apixaban (Eliquis) 5 Mg Tablet 5 MG PO BID for 30 Days, TAB Prov: PHOENIX NEW MD 03/26/23 Carvedilol (Carvedilol) 12.5 Mg Tablet 12.5 MG PO BID for 30 Days, TAB Prov: PHOENIX NEW MD 03/26/23 Alirocumab (Praluent Pen) 150 Mg/Ml Pen.injctr 150 MG SQ UD for 30 Days, EA EVERY TWO WEEKS. Prov: PHOENIX NEW MD 03/26/23 Copy Copies To 1: WEI CHAO MD, KATHRYN M MD Mar 25, 2023 12:42
[2023-03-25 12:58] LABS: BASOPHILS % (AUTO) 0 % (0-10); EOSINOPHILS # (AUTO) 0.1 10^3/uL (0.0-0.3); EOSINOPHILS % (AUTO) 1 % (0-10); HEMATOCRIT 44 % (35-52); HEMOGLOBIN 14.5 g/dL (11.5-16.0); LYMPHOCYTES # (AUTO) 1.6 10^3/uL (1.0-4.0); LYMPHOCYTES % (AUTO) 15 % (12-44); MEAN CORPUSCULAR HEMOGLOBIN 33 pg (25-34); MEAN CORPUSCULAR HGB CONC 33 g/dL (32-36); MEAN CORPUSCULAR VOLUME 99 fL (80-99); MEAN PLATELET VOLUME 9.4 fL (9.0-12.2); MONOCYTES % (AUTO) 9 % (0-12); NEUTROPHILS # (AUTO) 7.9 10^3/uL (1.8-7.8); NEUTROPHILS % (AUTO) 74 % (42-75); PLATELET COUNT 250 10^3/uL (130-400); WHITE BLOOD COUNT 10.7 10^3/uL (4.3-11.0)
[2023-03-25] MEDS ORDERED: NS IV 500 ML 500 ML IV STA (13:00)
[2023-03-25] MEDS ORDERED: NS IV 500 ML 500 ML ONE (13:01)
[2023-03-25 13:03] LABS: INR 1.3 (0.8-1.4); PROTHROMBIN TIME PATIENT 15.9 SEC (12.2-14.7)
[2023-03-25 13:04] LABS: ALBUMIN 3.6 GM/DL (3.2-4.5)
[2023-03-25 13:05] LABS: CHLORIDE 109 MMOL/L (98-107); POTASSIUM 4.3 MMOL/L (3.6-5.0); SODIUM 141 MMOL/L (135-145)
[2023-03-25 13:06] LABS: CALCIUM 9.4 MG/DL (8.5-10.1)
[2023-03-25 13:07] LABS: GLUCOSE 111 MG/DL (70-105); TOTAL PROTEIN 6.2 GM/DL (6.4-8.2)
[2023-03-25 13:08] LABS: CARBON DIOXIDE 22 MMOL/L (21-32)
[2023-03-25 13:09] LABS: BILIRUBIN,TOTAL 0.8 MG/DL (0.1-1.0)
[2023-03-25 13:10] LABS: ALKALINE PHOSPHATASE 38 U/L (40-136)
[2023-03-25 13:11] LABS: CREATININE SERUM 1.01 MG/DL (0.60-1.30); GFR ESTIMATED 56
[2023-03-25 13:12] LABS: BUN/CREATININE RATIO 23
[2023-03-25 13:13] LABS: ALANINE AMINOTRANSFERASE 91 U/L (0-55)
[2023-03-25 13:14] LABS: MAGNESIUM 2.2 MG/DL (1.6-2.4)
--- NOTE | 2023-03-25 13:17 | Diagnostic Imaging Report ---
Indication: Chest pain Frontal chest obtained at 1:01 p.m. and compared to 06/16/2015. There is cardiomegaly and central vascular congestion with new bibasilar infiltrates. There is no pneumothorax or significant sized pleural effusion. There is a new dual-lumen pacemaker compared to the prior study. Impression: cardiomegaly. Worsening central vascular congestion with new bibasilar infiltrates. Followup is recommended. Dictated by: Dictated on workstation # [id number]
[2023-03-25] MEDS ORDERED: FUROSEMIDE 40 MG/4 ML INJ (LASIX) IVP ONE (14:45)
--- NOTE | 2023-03-25 15:54 | Consultation-Cardiology ---
HPI-Cardiology Cardiology Consultation: Date of Consultation 03/25/23 Time Seen by a Provider: 15:20 Date of Admission 03-25-23 Attending Physician Jermaine Arnold MD Admitting Physician Admitting Physician: Attending Physician: Consulting Physician Erica Wells MD HPI: Chief Complaint: Newly dx a-fib with RVR Ms. Chong is an 78 yr old female admitted to [facility] from the ED with newly dx a- fib with RVR. She reports she tested positive for COVID on 03-14-23. She has completed Paxlovid. She came in today with increasing SOB. She reports she checked her oxygen sat at home and it reported her oxygen level was ok, but her HR was 140's. She called her PCP who advised she come to the ED. No c/o CP, palpitations, syncope, near syncope, LE swelling. No c/o n/v/d. No c/o fever or chills. Reports frequent non-productive cough. Review of Systems-Cardiology Review of Systems Constitutional: No chills, No fever; malaise Eyes: No vision change Ears/Nose/Throat: No recent hearing loss Respiratory: As described under HPI Cardiovascular: As described under HPI Gastrointestinal: As described under HPI Genitourinary: No dysuria, No hematuria Musculoskeletal: no symptoms reported Skin: No rash on exposed areas, No ulcerations on exposed areas Psychiatric/Neurological: No anxiety, No depression, No seizure, No focal weakness, No syncope All Other Systems Reviewed Negative Unless Noted: Yes HYV-Lcxzkm-Zujwrt Hx Patient Social History Alcohol Use?: No Pt feels they are or have been: No Immunizations Up To Date Tetanus Booster (TDap): Unknown Date of Influenza Vaccine: Jul 07, 2013 Past Medical History PMH As described under Assessment. Family Medical History Family Medical History: She reports her mother passed from CHF at age 40. She reports a sister who had a stroke. She reports a family h/o Factor V Leiden. Allergies and Home Medications Allergies Coded Allergies: No Known Drug Allergies (Unverified , 02/23/10) Patient Home Medication List Alirocumab (Praluent Pen) 150 Mg/Ml Pen.injctr, 150 MG SQ UD Prescribed by: CATIA DURAN on 03/26/23 4422 Last Action: Reviewed Apixaban (Eliquis) 5 Mg Tablet, 5 MG PO BID Prescribed by: CATIA DURAN on 03/26/231514 Last Action: Reviewed Ascorbic Acid (Vitamin C) 500 Mg Capsule.er, 500 MG PO DAILY Prescribed by: CATIA DURAN on 03/26/231514 Last Action: Reviewed Aspirin (Aspirin) 81 Mg Tab.chew, 81 MG PO DAILY Prescribed by: CATIA DURAN on 03/26/231514 Last Action: Reviewed Carvedilol (Carvedilol) 12.5 Mg Tablet, 12.5 MG PO BID Prescribed by: CATIA DURAN on 03/26/231514 Last Action: Reviewed Diltiazem HCl (Diltiazem 24Hr ER) 300 Mg Cap.er.24h, 300 MG PO DAILY Prescribed by: PHOENIX NEW on 03/26/231525 Ezetimibe (Zetia) 10 Mg Tablet, 1 TAB PO DAILY, (Reported) Entered as Reported by: BRITTANY ENGEL on 02/23/101103 Last Action: Reviewed Multivitamin (Multivitamin) 1 Each Tablet, 1 EACH PO DAILY Prescribed by: CATIA DURAN on 03/26/231514 Last Action: Reviewed [place]-3/Dha/Epa/Fish Oil (Fish Oil 1,000 mg Softgel) 1,000 Mg (120 Mg-180 Mg) Capsule, 1,000 MG PO DAILY Prescribed by: CATIA DURAN on 03/26/231514 Last Action: Reviewed Rosuvastatin Calcium (Crestor) 40 Mg Tablet, 1 TAB PO DAILY, (Reported) Entered as Reported by: BRITTANY ENGEL on 02/23/101103 Last Action: Reviewed [Marino Ex] Prescribed by: CATIA DURAN on 03/26/231514 Last Action: Reviewed Discontinued Medications Aspirin (Aspirin 325 Mg Tab) 325 Mg Tab, 325 MG PO DAILY, (Reported) Discontinued Reason: No Longer Taking Entered as Reported by: BRANDY VILLANUEVA on 08/08/130 Last Action: Discontinued Cyclobenzaprine Hcl (Cyclobenzaprine Hcl) 10 Mg Tablet, 1 EACH PO Q8HR PRN Discontinued Reason: No Longer Taking Prescribed by: ENRRIQUE SMITH on 08/09/13 0131 Last Action: Discontinued Hydrocortisone/Pramoxine (Pramcort 1% Cream) 30 Gm Cream.appl, 30 GM RC QID Discontinued Reason: No Longer Taking Prescribed by: ENRRIQUE SMITH on 04/12/18 1928 Last Action: Discontinued Labetalol Hcl (Labetalol Hcl) 100 Mg Tablet, 1 TAB PO BID, (Reported) Discontinued Reason: No Longer Taking Entered as Reported by: BRITTANY ENGEL on 02/23/10 110 Last Action: Discontinued Niacin (Niaspan) 500 Mg Tablet.sa, 2 TAB PO DAILY, (Reported) Discontinued Reason: No Longer Taking Entered as Reported by: BRITTANY ENGEL on 02/23/10 110 Last Action: Discontinued Ramipril (Altace) 5 Mg Capsule, 2 TAB PO DAILY, (Reported) Discontinued Reason: No Longer Taking Entered as Reported by: KATHRYN AYALA on 06/16/10 0316 Last Action: Discontinued Ticagrelor (Brilinta) 60 Mg Tablet, (Reported) Discontinued Reason: No Longer Taking Entered as Reported by: SORAYA STORM on 04/12/18 1727 Last Action: Discontinued Tramadol Hcl (Ultram) 50 Mg Tab, 50 MG PO Q4-6HOURS PRN for P Discontinued Reason: No Longer Taking Prescribed by: ENRRIQUE SMITH on 08/09/13 0131 Last Action: Discontinued Physical Exam-Cardiology Physical Exam Vital Signs/I&O 03/27/23 00:00 Intake Total 690 ml Output Total 1900 ml Balance -1210 ml Capillary Refill : Less Than 3 Seconds Constitutional: AAO x 3, well-developed, well-nourished HEENT: hearing is well preserved, oral hygience is good Neck: No carotid bruit; carotid pulses are 2 + bilaterally Respiratory: No accessory muscle use, No respiratory distress; chest expansion is symmetric, chest is bilaterally symmetric, lungs clear to auscultation Cardiovascular: irregularly irregular; No JVD; S1 and S2 Gastrointestinal: No tender; soft; No guarding; audible bowel sounds Extremities: no lower extremity edema bilateral Neurologic/Psychiatric: other (moves all extremities) Skin: No rash on exposed areas, No ulcerations on exposed areas Data Review Labs Radiology NAME: EVAN CHONG [facility] REC#: [id number] PT STATUS: REG ER : 1945 PHYSICIAN: SERENITY TAYLOR MD ADMIT DATE: 03/25/23/ER Signed Date of Exam:03/25/23 CHEST 1 VIEW, AP/PA ONLY Indication: Chest pain Frontal chest obtained at 1:01 p.m. and compared to 06/16/2015. There is cardiomegaly and central vascular congestion with new bibasilar infiltrates. There is no pneumothorax or significant sized pleural effusion. There is a new dual-lumen pacemaker compared to the prior study. Impression: cardiomegaly. Worsening central vascular congestion with new bibasilar infiltrates. Followup is recommended. 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 in [place] - followed by Dr. Dino ROCHA (+) - dx 03-14-23 - completed [facility] CAD - reports she had stents placed at [facility] in 2013 Renal artery stent - reports left renal artery stent in [address] 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 Sun at [facility] Liver enzyme elevation - undetermined etiology - management per medical services Family h/o: - Factor V Leiden - Mother - CHF - age 40 - Sister - CVA - Niece - CAD with recent CABG Discussion and Recomendations Newly dx a-fib on ECG in the ED on 03-25-23 - per PPM interrogation has been in a-fib since 03-19-23 - start Cardizem CD for rate control - continue Eliquis - Echocardiogram to eval structure and function Reports h/o CAD - continue ASA 81mg daily - request records from Dr. Sun at [facility] Newly dx CHF - treat with diuretics - Echocardiogram HTN - continue home dose of Coreg HLD - continue home medications Liver enzyme elevation - undetermined etiology - management per medical services Monitor lab closely Further recs will be based on her hospital course We would like to thank medical services for this consult MARIS UMANA Mar 25, 2023 15:54
[2023-03-25] MEDS ORDERED: RT-ALBUTEROL SULF 2.5 MG/3 ML PRE-MIX VIAL INH PRN (16:00)
[2023-03-25] MEDS ORDERED: CATHETER FLUSH 10 ML SYR IVP PRN (16:00)
[2023-03-25] MEDS ORDERED: dilTIAZem120 MG (CARDIZEM CD) CAP PO NR (17:15)
--- NOTE | 2023-03-25 17:44 | Consultation-Cardiology ---
HPI-Cardiology Cardiology Consultation: Date of Consultation 03/25/23 Time Seen by a Provider: 17:10 Date of Admission Attending Physician Jermaine Arnold MD Admitting Physician Admitting Physician: Tamiko Monteiro MD Attending Physician: Tamiko Monteiro MD Consulting Physician CAITY MORENO MD, MA, FACP, FACC, [facility] [place], CCDS HPI: Chief Complaint: Newly dx a-fib with RVR Ms. Chong is an 78 yr old female admitted to 7 from the ED with newly dx a- fib with RVR. She reports she tested positive for COVID on 03-14-23. She has completed Paxlovid. She came in today with increasing SOB. She reports she checked her oxygen sat at home and it reported her oxygen level was ok, but her HR was 140's. She called her PCP who advised she come to the ED. No c/o CP, palpitations, syncope, near syncope, LE swelling. No c/o n/v/d. No c/o fever or chills. Reports frequent non-productive cough. Review of Systems-Cardiology Review of Systems Constitutional: No chills, No fever; malaise Eyes: No vision change Ears/Nose/Throat: No recent hearing loss Respiratory: As described under HPI Cardiovascular: As described under HPI Gastrointestinal: As described under HPI Genitourinary: No dysuria, No hematuria Musculoskeletal: no symptoms reported Skin: No rash on exposed areas, No ulcerations on exposed areas Psychiatric/Neurological: No anxiety, No depression, No seizure, No focal weakness, No syncope All Other Systems Reviewed Negative Unless Noted: Yes AMU-Zbnbft-Kxcijr Hx Patient Social History Alcohol Use?: No Pt feels they are or have been: No Immunizations Up To Date Tetanus Booster (TDap): Unknown Date of Influenza Vaccine: Jul 07, 2013 Past Medical History PMH As described under Assessment. Family Medical History Family Medical History: She reports her mother passed from CHF at age 40. She reports a sister who had a stroke. She reports a family h/o Factor V Leiden. Allergies and Home Medications Allergies Coded Allergies: No Known Drug Allergies (Unverified , 02/23/10) Patient Home Medication List Home Medication List Reviewed: Yes Aspirin (Aspirin 325 Mg Tab) 325 Mg Tab, 325 MG PO DAILY, (Reported) Entered as Reported by: BRANDY VILLANUEVA on 08/08/132229 Cyclobenzaprine Hcl (Cyclobenzaprine Hcl) 10 Mg Tablet, 1 EACH PO Q8HR PRN Prescribed by: ENRRIQUE SMTIH on 08/09/13 013 Ezetimibe (Zetia) 10 Mg Tablet, 1 TAB PO DAILY, (Reported) Entered as Reported by: BRITTANY ENGEL on 02/23/10 1104 Hydrocortisone/Pramoxine (Pramcort 1% Cream) 30 Gm Cream.appl, 30 GM RC QID Prescribed by: ENRRIQUE SMITH on 04/12/18 1928 Labetalol Hcl (Labetalol Hcl) 100 Mg Tablet, 1 TAB PO BID, (Reported) Entered as Reported by: BRITTANY ENGEL on 02/23/10 110 Niacin (Niaspan) 500 Mg Tablet.sa, 2 TAB PO DAILY, (Reported) Entered as Reported by: BRITTANY ENGEL on 02/23/10 1104 Ramipril (Altace) 5 Mg Capsule, 2 TAB PO DAILY, (Reported) Entered as Reported by: KATHRYN AYALA on 06/16/10 0316 Rosuvastatin Calcium (Crestor) 40 Mg Tablet, 1 TAB PO DAILY, (Reported) Entered as Reported by: BRITTANY ENGEL on 02/23/10 1104 Ticagrelor (Brilinta) 60 Mg Tablet, (Reported) Entered as Reported by: SORAYA STORM on 04/12/18 1727 Tramadol Hcl (Ultram) 50 Mg Tab, 50 MG PO Q4-6HOURS PRN for P Prescribed by: ENRRIQUE SMITH on 08/09/13 013 Physical Exam-Cardiology Physical Exam Vital Signs/I&O 03/25/23 03/25/23 03/25/23 03/25/23 12:25 13:40 15:25 15:27 Temp 37.2 36.4 Pulse 133 128 96 Resp 16 18 B/P (MAP) 115/97 (103) 159/107 165/129 Pulse Ox 94 97 96 O2 Delivery Room Air Room Air Room Air 03/25/23 03/25/23 03/25/23 03/25/23 15:30 15:33 15:35 15:44 Temp 36.7 Pulse 98 125 97 Resp 13 B/P (MAP) 132/95 (107) 132/95 (107) Pulse Ox 96 O2 Delivery Room Air Room Air 03/25/23 03/25/23 15:51 16:00 Temp 36.7 Pulse 97 131 Resp 22 B/P (MAP) 154/85 (108) Pulse Ox 96 92 O2 Delivery Room Air FiO2 21 Capillary Refill : Less Than 3 Seconds Constitutional: AAO x 3, well-developed, well-nourished HEENT: hearing is well preserved, oral hygience is good Neck: No carotid bruit; carotid pulses are 2 + bilaterally Respiratory: No accessory muscle use, No respiratory distress; chest expansion is symmetric, chest is bilaterally symmetric, lungs clear to auscultation Cardiovascular: irregularly irregular; No JVD; S1 and S2 Gastrointestinal: No tender; soft; No guarding; audible bowel sounds Extremities: no lower extremity edema bilateral Neurologic/Psychiatric: other (moves all extremities) Skin: No rash on exposed areas, No ulcerations on exposed areas Data Review Labs Laboratory Tests 03/25/23 12:42: White Blood Count 10.7, Red Blood Count 4.42, Hemoglobin 14.5, Hematocrit 44, Mean Corpuscular Volume 99, Mean Corpuscular Hemoglobin 33, Mean Corpuscular Hemoglobin Concent 33, Red Cell Distribution Width 13.5, Platelet Count 250, Mean Platelet Volume 9.4, Immature Granulocyte % (Auto) 1, Neutrophils (%) (Auto) 74, Lymphocytes (%) (Auto) 15, Monocytes (%) (Auto) 9, Eosinophils (%) (Auto) 1, Basophils (%) (Auto) 0, Neutrophils # (Auto) 7.9H, Lymphocytes # (Auto) 1.6, Monocytes # (Auto) 1.0, Eosinophils # (Auto) 0.1, Basophils # (Auto) 0.0, Immature Granulocyte # (Auto) 0.1, Prothrombin Time 15.9H, INR Comment 1.3, Activated Partial Thromboplast Time 34, Sodium Level 141, Potassium Level 4.3, Chloride Level 109H, Carbon Dioxide Level 22, Anion Gap 10, Blood Urea Nitrogen 23H, Creatinine 1.01, Estimat Glomerular Filtration Rate 56, BUN/Creatinine R atio 23, Glucose Level 111H, Calcium Level 9.4, Corrected Calcium 9.7, Magnesium Level 2.2, Total Bilirubin 0.8, Aspartate Amino Transf (AST/SGOT) 50H, Alanine Aminotransferase (ALT/SGPT) 91H, Alkaline Phosphatase 38L, Troponin I < 0.028, B-Type Natriuretic Peptide 1206.1H, Total Protein 6.2L, Albumin 3.6 A/P-Cardiology Assessment/Admission Diagnosis Newly dx a-fib with RVR - per PPM interrogation carried out today in the ED she converted to a-fib on 03-19-23 - Eliquis 5mg BID at home (she reports started by [facility] shop assistant 4 or 5 years ago for a rhythm issue, exact details unknown) - Echo on 03-25-23: LVEF 60-65%, mod to severe MAC, mild to mod enlargement of both atria, mod TR, PASP 45-50 mmHg CHF - tx with diuretics PPM in place - PPM implanted 2013 d/t symptomatic bradycardia at [facility] in [place] - followed by Dr. 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 Sun at [facility] Liver enzyme elevation - undetermined etiology - management per medical services Family h/o: - Factor V Leiden - Mother - CHF - age 40 - Sister - CVA - Niece - CAD with recent CABG Discussion and Recomendations Newly dx a-fib on ECG in the ED on 03-25-23 - per PPM interrogation has been in a-fib since 03-19-23 - start Cardizem CD for rate control - continue Eliquis - Echocardiogram to eval structure and function Reports h/o CAD - continue ASA 81mg daily - request records from Dr. Sun at [facility] Newly dx CHF - treat with diuretics - Echocardiogram HTN - continue home dose of Coreg HLD - continue home medications Liver enzyme elevation - undetermined etiology - management per medical services Monitor lab closely Further recs will be based on her hospital course We would like to thank medical services for this consult CA[facility]ORENO [facility] Mar 25, 2023 17:44
[2023-03-25] MEDS: RT-ALBUTEROL SULF 2.5 MG/3 ML PRE-MIX VIAL INH SCH (20:08)
[2023-03-25] MEDS: APIXABAN 5 MG (ELIQUIS) TABLET PO SCH (20:38)
[2023-03-25] MEDS ORDERED: APIXABAN 5 MG (ELIQUIS) TABLET PO SCH (21:00)
[2023-03-25] MEDS: CATHETER FLUSH 10 ML SYR IVP SCH (22:14)
[2023-03-26] VITALS: BP 113/73
[2023-03-26] MEDS: RT-ALBUTEROL SULF 2.5 MG/3 ML PRE-MIX VIAL INH SCH ×2 (02:55→11:08)
[2023-03-26 04:00] VITALS: BP 123/77
[2023-03-26 05:58] LABS: ALBUMIN 3.3 GM/DL (3.2-4.5); POTASSIUM 3.6 MMOL/L (3.6-5.0)
[2023-03-26 05:59] LABS: CALCIUM 8.8 MG/DL (8.5-10.1)
[2023-03-26 06:01] LABS: TOTAL PROTEIN 5.6 GM/DL (6.4-8.2)
[2023-03-26 06:02] LABS: BILIRUBIN,TOTAL 1.1 MG/DL (0.1-1.0)
[2023-03-26 06:04] LABS: CREATININE SERUM 0.93 MG/DL (0.60-1.30)
[2023-03-26 06:07] LABS: MAGNESIUM 2.1 MG/DL (1.6-2.4)
[2023-03-26] MEDS: CATHETER FLUSH 10 ML SYR IVP SCH ×2 (06:38→14:03)
[2023-03-26] MEDS ORDERED: FUROSEMIDE 40 MG/4 ML INJ (LASIX) IV SCH (07:00)
[2023-03-26 07:39] VITALS: BP 127/73
[2023-03-26] MEDS: APIXABAN 5 MG (ELIQUIS) TABLET PO SCH (08:19)
[2023-03-26] MEDS ORDERED: ASPIRIN 81 MG CHEW (CHILDREN'S ASA) PO SCH (09:00)
--- NOTE | 2023-03-26 10:35 | Diagnostic Imaging Report ---
CHEST 1 VIEW, AP/PA ONLY INDICATION: Pulmonary edema. COMPARISON: Chest radiograph 03/25/2023. FINDINGS: Lungs: Normal lung volume. Decreased perihilar and bibasilar airspace opacities. Improved pulmonary vascular congestion. Pleura: Decreased small bilateral pleural effusion. Heart and Mediastinum: Cardiomediastinal silhouette and great vessels of the thorax are stable. Osseous Structures and Soft Tissues: No acute osseous abnormality. Normal soft tissues. IMPRESSION: Decreased perihilar and bibasilar airspace opacities. Decreased small bilateral pleural effusions. Improved pulmonary vascular congestion. Dictated by: Dictated on workstation # [id number]
--- NOTE | 2023-03-26 10:52 | Physical Therapy Evaluation ---
PT Evaluation-General Medical Diagnosis Admission Date Mar 25, 2023 at 15:24 Medical Diagnosis: afib Onset Date: Mar 25, 2023 Therapy Diagnosis Therapy Diagnosis: debility Height/Weight Height (Feet): 5 Height (Inches): 8.00 Weight (Pounds): 180 Precautions Precautions/Isolations: Fall Prevention, Standard Precautions Referral Physician: dao Reason for Referral: Evaluation/Treatment Social History Home: Single Level Current Living Status: Spouse PT Steps Into Home: 2 Prior Prior Level of Function SCALE: Activities may be completed with or without assistive devices. 1-Uikdqphsdq-dtppkdz completes the activity by him/herself with no assistance from a helper. 5-Set-up or Clean-up Assistance-helper sets up or cleans up; patient completes activity. [place] assists only prior to or following the activity. 4-Supervision or Touching Assistance-helper provides verbal cues and/or touching/steadying and/or contact guard assistance as patient completes activity. Assistance may be provided throughout the activity or intermittently. 3-Partial/Moderate Assistance-helper does LESS THAN HALF the effort. [place] lifts, holds or supports trunk or limbs, but provides less than half the effort. 2-Substantial/Maximal Assistance-helper does MORE THAN HALF the effort. [place] lifts or holds trunk or limbs and provides more than half the effort. 9-Ruldtnrrs-osmkjk does ALL the effort. Patient does none of the effort to complete the activity. Or, the assistance of 2 or more helpers is required for the patient to complete the activity. If activity was not attempted, code reason: 7-Patient Refused. 9-Not Applicable-not attempted and the patient did not perform the activity before the current illness, exacerbation or injury. 10-Not Attempted due to Environmental Limitations-(lack of equipment, weather restraints, etc.). 88-Not Attempted due to Medical Conditions or Safety Concerns. Bed Mobility: 6 Transfers (B,C,W/C): 6 Gait: 6 Stairs: 6 Prior Devices Use: None PT Evaluation-Current Subjective Patient states that she had covid a few weeks ago and has been weak since. Pain Numeric Pain Scale: 0-No Pain Objective Patient Orientation: Person, Place, Time, Situation ROM/Strength Strength Upper Extremities 4/5 grossly Strength Lower Extremities 4/5 grossly Transfers Roll Left to Right (QC): 6 Sit to Lying (QC): 6 Lying to Sitting/Side of Bed(Q: 6 Sit to Stand (QC): 6 Chair/Uvt-wh-Qivxz Xfer(QC): 6 Gait Does the Patient Walk?: Yes Mode of Locomotion: Walk Anticipated Mode of Locomotion: Walk Walk 10 feet (QC): 5 Walk 50 ft with 2 Turns(QC): 5 Walk 150 ft (QC): 5 Distance: 200' Gait Assistive Device: None Balance Sitting Static: Normal Sitting Dynamic: Normal Standing Static: Good Standing Dynamic: Fair Assessment/Needs 78 yo female with a diagnosis of afib. Patient has weakness and endurance and will benefit from skilled therapy. Rehab Potential: Good PT Snf Goals Snf Goals PT Organ Builder Goals Time Frame: Apr 02, 2023 Roll Left & Right (QC): 6 Sit to Lying (QC): 6 Lying-Sitting on Side/Bed(QC): 6 Sit to Stand (QC): 6 Chair/Paf-va-Nceyi Xfer(QC): 6 Toilet Transfer (QC): 6 Car Transfer (QC): 6 Does the Patient Walk: Yes Walk 10 feet (QC): 6 Walk 50ft with 2 Turns (QC): 6 Walk 150 ft (QC): 6 Walking 10ft on Uneven Surface: 6 1 Step (curb) (QC): 6 4 Steps (QC): 6 12 Steps (QC): 6 Picking up an Object (QC): 6 PT Plan Problem List Problem List: Activity Tolerance, Functional Strength, Balance, Gait Treatment/Plan Treatment Plan: Continue Plan of Care Treatment Plan: Bed Mobility, Education, Functional Activity [place], Functional Strength, Gait, Safety, Therapeutic Exercise Treatment Duration: Apr 02, 2023 Frequency: 6 times per week Estimated Hrs Per Day: .5 hour per day Patient and/or Family Agrees t: Yes Time Time In: 1030 Time Out: 1045 DATE: Mar 26, 2023 Total Billed Treatment Time: 15 Total Billed Treatment 1, EV Low complexity x 15' SHIVAM HUERTAS PT Mar 26, 2023 10:52
[2023-03-26 11:25] VITALS: BP 106/60
--- NOTE | 2023-03-26 12:45 | Progress Note - Cardiology ---
Cardiology SOAP Progress Note Subjective: Gen weakness and malaise No cp or palp or syncope No swelling No focal weakness No n/v/d Objective: I&O/Vital Signs 03/26/23 03/26/23 03/26/23 03/26/23 01:00 02:56 04:00 07:00 Temp 36.1 Pulse 62 76 76 Resp 15 B/P (MAP) 123/77 (92) Pulse Ox 95 O2 Delivery Room Air Room Air 03/26/23 03/26/23 03/26/23 03/26/23 07:09 07:30 07:39 11:25 Temp 36.5 36.0 Pulse 90 66 Resp 14 18 B/P (MAP) 127/73 (91) 106/60 (75) Pulse Ox 95 96 96 O2 Delivery Room Air Room Air Room Air Room Air 03/26/23 12:21 Pulse 65 03/26/23 00:00 Intake Total 1060 ml Output Total 1200 ml Balance -140 ml Weight (Pounds): 180 Weight (Calculated Kilograms): [id number] Constitutional: AAO x 3, well-developed, well-nourished Respiratory: No accessory muscle use, No respiratory distress; chest expansion is symmetric, chest is bilaterally symmetric, lungs clear to auscultation Cardiovascular: irregularly irregular; No JVD; S1 and S2 Gastrointestional: No tender; soft; No guarding; audible bowel sounds Extremities: no lower extremity edema bilateral Neurologic/Psychiatric: other (moves all extremities) Skin: No rash on exposed areas, No ulcerations on exposed areas Results/Procedures: Labs Laboratory Tests 03/25/23 12:42: White Blood Count 10.7, Red Blood Count 4.42, Hemoglobin 14.5, Hematocrit 44, Mean Corpuscular Volume 99, Mean Corpuscular Hemoglobin 33, Mean Corpuscular Hemoglobin Concent 33, Red Cell Distribution Width 13.5, Platelet Count 250, Mean Platelet Volume 9.4, Immature Granulocyte % (Auto) 1, Neutrophils (%) (Auto) 74, Lymphocytes (%) (Auto) 15, Monocytes (%) (Auto) 9, Eosinophils (%) (Auto) 1, Basophils (%) (Auto) 0, Neutrophils # (Auto) 7.9H, Lymphocytes # (Auto) 1.6, Monocytes # (Auto) 1.0, Eosinophils # (Auto) 0.1, Basophils # (Auto) 0.0, Immature Granulocyte # (Auto) 0.1, Prothrombin Time 15.9H, INR Comment 1.3, Activated Partial Thromboplast Time 34, Sodium Level 141, Potassium Level 4.3, Chloride Level 109H, Carbon Dioxide Level 22, Anion Gap 10, Blood Urea Nitrogen 23H, Creatinine 1.01, Estimat Glomerular Filtration Rate 56, BUN/Creatinine Ratio 23, Glucose Level 111H, Calcium Level 9.4, Corrected Calcium 9.7, Magnesium Level 2.2, Total Bilirubin 0.8, Aspartate Amino Transf (AST/SGOT) 50H, Alanine Aminotransferase (ALT/SGPT) 91H, Alkaline Phosphatase 38L, Troponin I < 0.028, B-Type Natriuretic Peptide 1206.1H, Total Protein 6.2L, Albumin 3.6 03/26/23 04:44: Sodium Level 138, Potassium Level 3.6, Chloride Level 104, Carbon Dioxide Level 25, Anion Gap 9, Blood Urea Nitrogen 20H, Creatinine 0.93, Estimat Glomerular Filtration Rate 62, BUN/Creatinine Ratio 22, Glucose Level 94, Calcium Level 8.8, Corrected Calcium 9.4, Magnesium Level 2.1, Total Bilirubin 1.1H, Aspartate Amino Transf (AST/SGOT) 30, Alanine Aminotransferase (ALT/SGPT) 66H, Alkaline Phosphatase 25L, Total Protein 5.6L, Albumin 3.3, Triglycerides Level 62, Choles terol Level 110, LDL Cholesterol Direct 54, VLDL Cholesterol 12, HDL Cholesterol 48, Thyroid Stimulating Hormone (TSH) 1.61 Laboratory Tests 03/25/23 12:42 03/26/23 04:44 A/P: Assessment: Newly dx a-fib with RVR - per PPM interrogation carried out today in the ED she converted to a-fib on 03-19-23 - Eliquis 5mg BID at home (she reports started by [facility]'s smutter 4 or 5 years ago for a rhythm issue, exact details unknown) - Echo on 03-25-23: LVEF 60-65%, mod to severe MAC, mild to mod enlargement of both atria, mod TR, PASP 45-50 mmHg CHF, ac diastolic (due to A Fib with RVR) - now compensated after diuretics PPM in place - PPM implanted 2013 d/t symptomatic bradycardia at [facility] in [place] - followed by Dr. 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 Sun at [facility] Liver enzyme elevation - undetermined etiology - management per medical services Family h/o: - Factor V Leiden - Mother - CHF - age 40 - Sister - CVA - Niece - CAD with recent CABG Plan: * Continue Cardizem CD. It has controlled vent response * Continue OAC for stroke prophylaxis * D/c diuretics. Heart failure appears compensated now * Increase ambulation * Hosp service treating Covid and gen weakness and other medical issues * Ok to d/c from card standpoint. 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 with whom f/u is advised next week CAITY MORENO MD FACP [facility] CCDS Mar 26, 2023 12:45
[2023-03-26] MEDS ORDERED: KCL 20 MEQ TAB (K-DUR) PO ONE (13:00)
--- NOTE | 2023-03-26 13:49 | History & Physical-Hospitalist ---
History of Present Illness HPI/Chief Complaint Josy Chong is an 78 year old female with PMH HTN, HLD, CAD, pacemaker, who presented with shortness of breath. She was diagnosed with COVID a week and half ago. She has been feeling weak. She noticed her heart rate was in the 140s when she was checking her oxygen with a pulse oximeter. She denies chest pain. She denies palpitations. She denies fevers and chills. She does not think she has a history of AFib. She is on Eliquis for unknown reason. 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 Source: patient Exam Limitations: no limitations Date Seen 03/26/23 Time Seen by a Provider: 09:55 Attending Physician Jermaine Arnold MD PCP Admitting Physician: Phoenix New MD Attending Physician: Phoenix New MD Referring Physician Date of Admission Mar 25, 2023 at 15:24 Home Medications & Allergies Home Medications Reviewed patient Home Medication Reconciliation performed by pharmacy medication reconciliations neon technician and/or nursing. Patients Allergies have been reviewed. Allergies Allergies Coded Allergies No Known Drug Allergies (Unverified02/23/10) Past Uqgrzuv-Uwjhma-Yasqks Hx Patient Social History Tobacco Use?: No Substance use?: No Alcohol Use?: No Pt feels they are or have been: No Immunizations Up To Date Date of Influenza Vaccine: Jul 07, 2013 Tetanus Booster (TDap): Unknown Current Status status: No status: No Advance Directives: No Communicates: Verbally Primary Language: Taiwanese Preferred Spoken Language: Taiwanese Is interpretation needed?: No Sensory deficits: Vision impairment Implanted or Applied Medical D: Pacemaker, Stents Past Medical History Surgeries: Cardiac, Coronary Stent, Rectal, Tonsillectomy, Vascular Surgery Coronary Artery Disease, Heart Attack, High Cholesterol, Hypertension, Peripheral Vascular TRANSLATOR/INTERPRETER History: Menopausal Sexually Transmitted Disease: No HIV/AIDS: No Bladder Infection Polyps Arthritis, Chronic Back Pain Cataract Loss of Vision: Bilateral Hearing Impairment: Denies Blood Disorders: No Family Medical History No Pertinent Family Hx Review of Systems Constitutional: weakness Respiratory: dyspnea on exertion, short of breath Cardiovascular: no symptoms reported Gastrointestinal: no symptoms reported Physical Exam Physical Exam Vital Signs Vital Signs - First Documented 03/25/23 03/25/23 12:25 15:51 Temp 37.2 Pulse 133 Resp 16 B/P (MAP) 115/97 (103) Pulse Ox 94 O2 Delivery Room Air FiO2 21 Capillary Refill : Less Than 3 Seconds Height, Weight, BMI Height: 5'8.00" Weight: 180lbs. oz. 81.943990gz; 27.37 BMI Method:Stated General Appearance: No Apparent Distress, WD/WN HEENT: PERRL/EOMI, Pharynx Normal Neck: Normal Inspection, Supple Respiratory: Lungs Clear, No Respiratory Distress Cardiovascular: No Murmur, Irregularly Irregular Gastrointestinal: Normal Bowel Sounds, Non Tender, Soft Extremity: Normal Inspection, No Pedal Edema Neurologic/Psychiatric: Alert, Oriented x3, Normal Mood/Affect Skin: Normal Color, Warm/Dry Results Results/Procedures Labs Laboratory Tests 03/25/23 12:42 03/26/23 04:44 Patient resulted labs reviewed. Imaging: Reviewed Imaging Films, Reviewed Imaging Report Assessment/Plan Admission Diagnosis AFib with RVR Admission Status: Observation Assessment and Plan AFib with RVR Cardiology following Cardizem Coreg Eliquis Pulmonary edema Pleural effusions Acute HFpEF Elevated LFTs Likely due to AFib with RVR Echo with normal EF, moderate to severe mitral valve calcification, mild to moderate left and right atrium dilation, PASP 45-50 s/p Lasix Not requiring supplemental oxygen LFTs improving, likely due to congestive hepatopathy HTN HLD CAD Pacemaker Diagnosis/Problems Diagnosis/Problems (1) Atrial fibrillation with rapid ventricular response Status: Acute (2) Congestive heart failure Status: Acute Qualifiers: Heart failure type: diastolic Heart failure chronicity: acute Qualified Codes: I50.31 - Acute diastolic (congestive) heart failure (3) Acute heart failure with normal ejection fraction Status: Acute (4) Pleural effusion (5) Pulmonary edema Status: Acute Qualifiers: Chronicity: acute Qualified Codes: J81.0 - Acute pulmonary edema (6) Mitral annular calcification Status: Acute (7) Pulmonary hypertension Status: Acute (8) Left atrial dilation Status: Acute (9) Right atrial dilation Status: Acute (10) Elevated LFTs Status: Acute PHOENIX NEW MD Mar 26, 2023 13:49
[2023-03-26] MEDS ORDERED: ALIR150P6 SQ (15:15)
[2023-03-26] MEDS ORDERED: ASPI-999 PO (15:15)
[2023-03-26] MEDS ORDERED: MULT-1136 PO (15:15)
[2023-03-26] MEDS ORDERED: [UNRECOGNIZED DRUG - OTHER] (15:15)
[2023-03-26] MEDS ORDERED: OMEG100032 PO (15:15)
[2023-03-26] MEDS ORDERED: APIX5TAB PO (15:15)
[2023-03-26] MEDS ORDERED: ASCO500C18 PO (15:15)
[2023-03-26] MEDS ORDERED: CARV12.53 PO (15:15)
[2023-03-26] MEDS ORDERED: DILT300C52 PO (15:26)
--- NOTE | 2023-03-26 15:31 | Discharge Summary ---
Discharge Summary Hospital Course Problems/Dx: (1) Atrial fibrillation with rapid ventricular response Status: Acute (2) Congestive heart failure Status: Acute Qualifiers: Qualified Codes: I50.31 - Acute diastolic (congestive) heart failure (3) Acute heart failure with normal ejection fraction Status: Acute (4) Pleural effusion (5) Pulmonary edema Status: Acute Qualifiers: Qualified Codes: J81.0 - Acute pulmonary edema (6) Mitral annular calcification Status: Acute (7) Pulmonary hypertension Status: Acute (8) Left atrial dilation Status: Acute (9) Right atrial dilation Status: Acute (10) Elevated LFTs Status: Acute Hospital Course Date of Admission: Mar 25, 2023 at 15:24 Admission Diagnosis : AFib with RVR Family Physician/Provider: Wei Chao MD Date of Discharge: 03/26/23 Discharge Diagnosis: AFib with RVR Hospital Course: Josy Chong is an 78 year old female who was admitted with AFib with RVR. Cardiology consulted and assisted in her care. She was started on Cardizem and her rates improved. She was continued on Eliquis. She was continued on Coreg. She had some pulmonary edema due to acute HFpEF associated with her rapid ventricular rate. Her echo showed normal EF. She had moderate to severe mitral annular calcification. She also had left and right atrial dilation, mild to moderate. She had elevated pulmonary artery systolic pressures of 45-50. Her LFTs were slightly elevated, but improved. This was likely due to congestion associated with rapid ventricular rate. She was not requiring supplemental oxygen. She was discharged home in stable condition. She should follow up with Dr. 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 Labs and Pending Lab Test: Laboratory Tests 03/26/23 04:44: Sodium Level 138, Potassium Level 3.6, Chloride Level 104, Carbon Dioxide Level 25, Anion Gap 9, Blood Urea Nitrogen 20H, Creatinine 0.93, Estimat Glomerular Filtration Rate 62, BUN/Creatinine Ratio 22, Glucose Level 94, Calcium Level 8.8, Corrected Calcium 9.4, Magnesium Level 2.1, Total Bilirubin 1.1H, Aspartate Amino Transf (AST/SGOT) 30, Alanine Aminotransferase (ALT/SGPT) 66H, Alkaline Phosphatase 25L, Total Protein 5.6L, Albumin 3.3, Triglycerides Level 62, Cholesterol Level 110, LDL Cholesterol Direct 54, VLDL Cholesterol 12, HDL Cholesterol 48, Thyroid Stimulating Hormone (TSH) 1.61 Home Meds Active Diltiazem 24Hr ER (Diltiazem HCl) 300 Mg Cap.er.24h 300 Mg PO DAILY 30 Days [[place] Ex] Fish Oil 1,000 mg Softgel ([place]-3/Dha/Epa/Fish Oil) 1,000 Mg (120 Mg-180 Mg) Capsule 1,000 Mg PO DAILY 30 Days Multivitamin 1 Each Tablet 1 Each PO DAILY 30 Days Aspirin 81 Mg Tab.chew 81 Mg PO DAILY 30 Days Vitamin C (Ascorbic Acid) 500 Mg Capsule.er 500 Mg PO DAILY 30 Days Eliquis (Apixaban) 5 Mg Tablet 5 Mg PO BID 30 Days Carvedilol 12.5 Mg Tablet 12.5 Mg PO BID 30 Days Praluent Pen (Alirocumab) 150 Mg/Ml Pen.injctr 150 Mg SQ UD 30 Days EVERY TWO WEEKS. Reported Zetia (Ezetimibe) 10 Mg Tablet 1 Tab PO DAILY Crestor (Rosuvastatin Calcium) 40 Mg Tablet 1 Tab PO DAILY Assessment/Pt Instructions See instructions Discharge Planning: <30 minutes discharge planning Discharge Instructions Discharge Diet: No Restrictions Activity as Tolerated: Yes Consultations Cardiology Discharge Physical Examination Vital Signs Vital Signs Date Time Temp Pulse Resp B/P (MAP) Pulse Ox O2 Delivery O2 Flow Rate FiO2 03/26/23 12:21 65 03/26/23 11:25 36.0 18 106/60 (75) 96 Room Air 03/25/23 15:51 21 Allergies: Coded Allergies: No Known Drug Allergies (Unverified , 02/23/10) Copy Copies To 1: WEI CHAO MD Discharge Summary Date of Admission Mar 25, 2023 at 15:24 Date of Discharge Discharge Date: Mar 26, 2023 Discharge Time: 15:30 Admission Diagnosis AFib with RVR Consults/Procedures Consulations Cardiology Discharge Diagnosis AFib with RVR Pulmonary edema Pleural effusions Acute HFpEF Elevated LFTs HTN HLD CAD s/p pacemaker (1) Atrial fibrillation with rapid ventricular response Status: Acute (2) Congestive heart failure Status: Acute Qualifiers: Qualified Codes: I50.31 - Acute diastolic (congestive) heart failure (3) Acute heart failure with normal ejection fraction Status: Acute (4) Pleural effusion (5) Pulmonary edema Status: Acute Qualifiers: Qualified Codes: J81.0 - Acute pulmonary edema (6) Mitral annular calcification Status: Acute (7) Pulmonary hypertension Status: Acute (8) Left atrial dilation Status: Acute (9) Right atrial dilation Status: Acute (10) Elevated LFTs Status: Acute [place] NEW MD Mar 26, 2023 15:31
[2023-03-26 15:51] VITALS: BP 132/93
== END 2023-03-26 15:26 | disposition home or self-care (01) ==
LOC: EDUNIT# 12:20 → ER 12:23 → CSD 15:24 → UNDOADMOB 15:24 → CSD 15:37 → UNDODISOB 03-26 15:26
PROVIDERS: ADMIT Internal Medicine; ATTEND Internal Medicine
DX: I48.91 Unspecified atrial fibrillation (principal); I11.0 Hypertensive heart disease with heart failure; I50.31 Acute diastolic (congestive) heart failure; U07.1 COVID-19; J90 Pleural effusion, not elsewhere classified; J81.0 Acute pulmonary edema; I34.81 Nonrheumatic mitral (valve) annulus calcification; I27.20 Pulmonary hypertension, unspecified; R79.89 Other specified abnormal findings of blood chemistry; I25.10 Atherosclerotic heart disease of native coronary artery without angina pectoris; R74.01 Elevation of levels of liver transaminase levels; Q60.0 Renal agenesis, unilateral; E78.5 Hyperlipidemia, unspecified; Z95.0 Presence of cardiac pacemaker; Z79.01 Long term (current) use of anticoagulants; Z95.820 Peripheral vascular angioplasty status with implants and grafts
CPT/HCPCS: 71045 ×2; 80053 ×2; 80061; 83735 ×2; 83880; 84443; 84484; 85025; 85610; 85730; 93005 ×2; 93041; 94640; 94760; 96376; 97161; 99284; C8929; G0378; 36415; 93306